=== PATIENT | male | born 1955 | race Caucasian/White ===

== ENCOUNTER → 2023-10-03 06:54 | Outpatient (REF) | payer MEDICARE, OTHER, SELFPAY ==
[2023-10-03 10:51] LABS: ALT (SGPT) 23 U/L (0-50); AST (SGOT) 27 U/L (17-59); Albumin 4.1 g/dl (3.5-5.0); Alkaline Phosphatase 64 U/L (38-126); Blood Urea Nitrogen 26 mg/dl (9-20); Calcium 9.4 mg/dl (8.4-10.2); Carbon Dioxide 27 mmol/L (22-30); Chloride 103 mmol/L (98-107); Glucose 121 mg/dl (70-99); Sodium 140 mmol/L (135-145); Total Bilirubin 0.3 mg/dl (0.2-1.3); eGFR > 60.00
== END ==
LOC: HWLAB 06:54
PROVIDERS: ATTENDING PHYSICIAN Internal Medicine; FAMILY PHYSICIAN Internal Medicine
DX: C34.01 Malignant neoplasm of right main bronchus (principal); C34.90 Malignant neoplasm of unspecified part of unspecified bronchus or lung
CPT/HCPCS: 36415; 80053

== ENCOUNTER → 2024-01-30 06:04 | Outpatient (REF) | payer MEDICARE, OTHER, SELFPAY ==
[2024-01-30 09:47] LABS: % Basophils 0.4 % (0-2); % Eosinophils 1.1 % (0-6); % Immature Granulocytes 0.4 % (0-0.5); % Lymphocytes 19.8 % (20.5-51.1); % Monocytes 10.3 % (1.7-9.3); Absolute Eosinophils 0.1 10^3/uL (0-0.7); Absolute Monocytes 0.5 10^3/uL (0.1-0.6); Absolute Neutrophils 3.6 10^3/uL (1.4-6.5); Hematocrit 37.9 % (39.0-52.0); Hemoglobin 13.1 g/dL (13.0-18.0); Mean Corp Hgb Conc. 34.6 g/dL (33.0-37.0); Mean Corpuscular Hgb 31.1 pg (27.0-31.0); Mean Platelet Volume 10.1 fL (7.4-10.4); Nucleated Red Blood Cells % 0 % (-); Platelet Count 204 10^3/uL (130-400); Red Blood Cell Count 4.21 10^6/uL (4.70-6.10); Red Cell Dist. Width 14.5 % (11.5-14.5); White Blood Cell Count 5.3 10^3/uL (4.8-10.8)
[2024-01-30 10:22] LABS: ALT (SGPT) 27 U/L (0-50); AST (SGOT) 31 U/L (17-59); Albumin 4.5 g/dl (3.5-5.0); Alkaline Phosphatase 71 U/L (38-126); Blood Urea Nitrogen 28 mg/dl (9-20); Calcium 9.5 mg/dl (8.4-10.2); Carbon Dioxide 26 mmol/L (22-30); Chloride 106 mmol/L (98-107); Glucose 98 mg/dl (70-99); HDL Cholesterol 52 mg/dl; LDL Cholesterol, Calculated 64 mg/dl; Potassium 3.9 mmol/L (3.5-5.1); Sodium 140 mmol/L (135-145); Total Bilirubin 0.4 mg/dl (0.2-1.3); Total Cholesterol 141 mg/dl (50-199); Total Protein 6.9 g/dl (6.3-8.2); Triglyceride 125 mg/dl (10-149); Very Low Density Lipoprotein 25 mg/dl (0-30); eGFR > 60.00
[2024-01-30 10:26] LABS: Glycohemoglobin (HgbA1c) 5.8 % (4.0-5.6)
[2024-01-30 10:58] LABS: Free T4 0.81 ng/dl (0.78-2.19); Vitamin D, 25-OH*** 51.3 ng/mL (30-80)
[2024-01-30 11:11] LABS: PSA, Total - Diagnostic 2.25 ng/ml (0.0-4.0); TSH 2.32 uIU/ml (0.47-4.68)
== END ==
LOC: HWLAB 06:04
PROVIDERS: ATTENDING PHYSICIAN Internal Medicine; REFERRING PHYSICIAN Internal Medicine
DX: R35.1 Nocturia (principal); E55.9 Vitamin D deficiency, unspecified; E78.5 Hyperlipidemia, unspecified; E11.69 Type 2 diabetes mellitus with other specified complication; I10 Essential (primary) hypertension
CPT/HCPCS: 36415; 80053; 80061; 82306; 83036; 84153; 84439; 84443; 85025

== ENCOUNTER → 2024-02-14 06:33 | Outpatient (REF) | payer MEDICARE, OTHER, SELFPAY ==
[2024-02-14 10:07] LABS: % Basophils 0.7 % (0-2); % Eosinophils 1.4 % (0-6); % Immature Granulocytes 0.3 % (0-0.5); % Lymphocytes 22.4 % (20.5-51.1); % Monocytes 9.6 % (1.7-9.3); % Neutrophils 65.6 % (42.2-75.2); Absolute Eosinophils 0.1 10^3/uL (0-0.7); Absolute Lymphocytes 1.3 10^3/uL (1.2-3.4); Absolute Monocytes 0.6 10^3/uL (0.1-0.6); Absolute Neutrophils 3.9 10^3/uL (1.4-6.5); Hematocrit 37.7 % (39.0-52.0); Hemoglobin 12.8 g/dL (13.0-18.0); Mean Corpuscular Hgb 30.6 pg (27.0-31.0); Mean Corpuscular Volume 90.2 fL (80.0-94.0); Mean Platelet Volume 10.6 fL (7.4-10.4); Nucleated Red Blood Cells % 0 % (-); Platelet Count 198 10^3/uL (130-400); Red Blood Cell Count 4.18 10^6/uL (4.70-6.10); Red Cell Dist. Width 14.6 % (11.5-14.5); White Blood Cell Count 5.9 10^3/uL (4.8-10.8)
== END ==
LOC: HWLAB 06:33
PROVIDERS: ATTENDING PHYSICIAN Internal Medicine; FAMILY PHYSICIAN Internal Medicine
DX: C34.01 Malignant neoplasm of right main bronchus (principal); C34.90 Malignant neoplasm of unspecified part of unspecified bronchus or lung; C34.91 Malignant neoplasm of unspecified part of right bronchus or lung
CPT/HCPCS: 36415; 85025

== ENCOUNTER 2024-06-14 10:01 | Emergency (ER) | payer MEDICARE, OTHER, SELFPAY ==
[2024-06-14 10:02] VITALS: BMI 28.5
[2024-06-14 10:08] VITALS: BP 165/76
[2024-06-14 11:31] LABS: % Basophils 0.2 % (0-2); % Eosinophils 0.2 % (0-6); % Immature Granulocytes 0.2 % (0-0.5); % Lymphocytes 9.9 % (20.5-51.1); % Monocytes 10.3 % (1.7-9.3); % Neutrophils 79.2 % (42.2-75.2); Absolute Lymphocytes 0.9 10^3/uL (1.2-3.4); Absolute Monocytes 0.9 10^3/uL (0.1-0.6); Absolute Neutrophils 6.8 10^3/uL (1.4-6.5); Hematocrit 37.6 % (39.0-52.0); Mean Corp Hgb Conc. 34.6 g/dL (33.0-37.0); Mean Corpuscular Hgb 30.5 pg (27.0-31.0); Mean Corpuscular Volume 88.3 fL (80.0-94.0); Mean Platelet Volume 9.6 fL (7.4-10.4); Nucleated Red Blood Cells % 0 % (-); Platelet Count 216 10^3/uL (130-400); Red Blood Cell Count 4.26 10^6/uL (4.70-6.10); Red Cell Dist. Width 14.4 % (11.5-14.5); Urine Albumin Negative (Neg - Trace); Urine Bilirubin Negative (Negative); Urine Character Clear (Clear); Urine Color Yellow; Urine Glucose Negative (Negative); Urine Ketone Negative (Negative); Urine Leukocyte Negative (Negative); Urine Nitrite Negative (Negative); Urine Occult Blood 2+ (Negative); Urine Specific Gravity 1.025 (<1.030); Urine Urobilinogen Negative (Neg - 1+); White Blood Cell Count 8.6 10^3/uL (4.8-10.8)
[2024-06-14 11:47] LABS: Urine Mucus Few
[2024-06-14 11:48] LABS: Urine Calcium Oxalate Crystals Seen; Urine Hyaline Cast 0-2 /LPF (0-2)
[2024-06-14 11:49] LABS: ALT (SGPT) 26 U/L (0-50); AST (SGOT) 27 U/L (17-59); Albumin 4.5 g/dl (3.5-5.0); Alkaline Phosphatase 68 U/L (38-126); Blood Urea Nitrogen 34 mg/dl (9-20); Calcium 9.5 mg/dl (8.4-10.2); Carbon Dioxide 24 mmol/L (22-30); Chloride 105 mmol/L (98-107); Estimated Creatinine Clearance 49 ml/min; Glucose 93 mg/dl (70-99); Lipase 215 U/L (23-300); Potassium 4.4 mmol/L (3.5-5.1); Sodium 141 mmol/L (135-145); Total Bilirubin 0.4 mg/dl (0.2-1.3); Total Protein 7.1 g/dl (6.3-8.2); Urine Bacteria Few (Negative); eGFR 50.71
--- NOTE | 2024-06-14 12:57 | ED.GENMED ---
History of Present Illness
General
Chief Complaint: Abdominal Symptoms
Time Seen by Provider: 06/14/24 10:47
History of Present Illness
History of Present Illness:
68-year-old male presents to the emergency department for evaluation of right lower quadrant abdominal pain associated with nausea and vomiting for the past 2 days. States that he just completed a course of doxycycline and amoxicillin due to an
incidentally noted pneumonia on an outpatient CT scan for his lung cancer done at [facility]. Did have some diarrhea earlier this week but after discontinuing the Augmentin the diarrhea resolved. Reports tactile fevers but no chills or sweats. No
hematuria or dysuria
Review of Systems
Review of Systems
Allergies reviewed?: Yes
All Other Systems: ROS reviewed and negative except as documented in HPI and ROS
Phy Exam
Physical Exam
Physical Exam:
GEN: Well appearing, NAD, WDWN
HEENT: Oral mucosa moist, no scleral icterus
Cardiac: Regular rate
Lung: No respiratory distress, no tachypnea
Abdomen: Soft, nontender
MSK: No gross deformity or injuries
Skin: Good color, no pallor or jaundice, no rashes
Neuro: AO x3, moves all extremities freely
Psych: Calm, cooperative
Course
Orders/Labs/Results
Orders:
Orders
06/14/24 10:12
IV Insert/Care/Rem.- Treatment PRN
06/14/24 11:10
Complete Blood Count/With Diff Urgent
Comprehensive Metabolic Panel Urgent
Lipase Urgent
Urinalysis Reflex To Culture Urgent
Date Specimen was Collected: 06/14/24
Time Specimen was Collected: 10:12
Urine Microscopic Reflex Cult Urgent
06/14/24 11:34
CT Abd/Pel (IV only)-DH only Urgent
Comment:
Reason For Exam: RLQ pain
06/14/24 12:57
Ketorolac [Toradol] 15 mg IV NOW STA
Abnormal Lab Results
06/14/24
11:10
RBC 4.26 L 10^6/uL
(4.70-6.10)
Hct 37.6 L %
(39.0-52.0)
Absolute Neuts (auto) 6.8 H 10^3/uL
(1.4-6.5)
Absolute Lymphs (auto) 0.9 L 10^3/uL
(1.2-3.4)
Absolute Monos (auto) 0.9 H 10^3/uL
(0.1-0.6)
Neutrophils % 79.2 H %
(42.2-75.2)
Lymphocytes % 9.9 L %
(20.5-51.1)
Monocytes % 10.3 H %
(1.7-9.3)
BUN 34 H mg/dl
(9-20)
Creatinine 1.5 H mg/dL
(0.7-1.3)
Ur Occult Blood Reflex 2+ A
(Negative)
Urine RBC 3-6 A /HPF
(0-2)
Urine Bacteria (Reflex) Few A
(Negative)
06/14/24 11:10
06/14/24 11:10
Vital Signs
Initial and Last Documented VS:
Initial Vital Signs
Temp Pulse Resp BP Pulse Ox
98 F 72 16 165/76 100
06/14/24 10:08 06/14/24 10:08 06/14/24 10:08 06/14/24 10:08 06/14/24 10:08
Last Documented Vital Signs
Temp Pulse Resp BP Pulse Ox
98 F 87 16 124/75 98
06/14/24 10:08 06/14/24 13:15 06/14/24 13:15 06/14/24 13:15 06/14/24 13:15
MDM/Problems Addressed
MDM/Problems Addressed:
Imaging reveals a 1 mm right UVJ stone with mild hydronephrosis, this is likely the etiology to symptoms., His pain is well-controlled, urinalysis unremarkable for infectious etiology. Will discharge home with expectant management
*Critical Care Note
Total Time (30-74mins, 75-104mins- exclusive of procedures): Not Applicable
ED Attending Note
-
Portions of this chart may have been created with voice recognition software.� Occasional wrong word or��sound alike� substitutions may have occurred due to the inherent limitations of voice recognition software.
Discharge Plan
Departure
Patient Disposition: Home (Routine Discharge)
Date of Disposition: 06/14/24
Time of Disposition: 12:57
Patient with high blood pressure during this ER visit?: No
Discharge Problem:
Ureterolithiasis
Instructions: Kidney Stone, Adult ED
Prescriptions:
New
diclofenac sodium 75 mg tablet,delayed release (DR/EC)
75 mg PO BID PRN (Reason: Pain) Qty: 20 0RF
No Action
multivitamin 1 EACH tablet
1 ea PO DAILY
losartan 50 MG tablet
50 mg PO DAILY
aspirin [Aspir-Low] 81 MG tablet,delayed release (DR/EC)
81 mg PO DAILY
omeprazole 20 MG capsule,delayed release(DR/EC)
20 mg PO DAILY
rosuvastatin 10 MG tablet
10 mg PO QPM
Referrals:
Jonel Bean MD [Family Provider] -
Interventions
Interventions:
*Risk Screen - Suicide Last Done: 06/14/24 10:08
*General Assessment Last Done: 06/14/24 11:17
*Neglect/Abuse Screening Last Done: 06/14/24 10:11
ED- Fall Risk Assessment Last Done: 06/14/24 11:17
*ED COVID-19 Vaccine History Last Done: 06/14/24 11:17
*Nursing Disposition Last Done: 06/14/24 13:30
DO-Aofhpo-Ueizsuvmov Assessment Last Done: 06/14/24 11:17
Discharge Date and Time
Discharge Date/Time: 06/14/24 13:35
Print Language: DIVEHI
[2024-06-14 13:15] VITALS: BP 124/75
[2024-06-14] MEDS: TORADOL 15 MG IV (13:20)
== END 2024-06-14 13:35 | disposition home or self-care (01) ==
LOC: EMR 10:01
PROVIDERS: Emergency Medicine; EMERGENCY PHYSICIAN Student in an Organized Health Care Education/Training Program; FAMILY PHYSICIAN Internal Medicine
DX: N13.2 Hydronephrosis with renal and ureteral calculous obstruction (principal)
CPT/HCPCS: 96374; 99284; 74177; 80053; 81003; 81015; 83690; 85025; Q9967

== ENCOUNTER → 2024-08-11 06:48 | Outpatient (REF) | payer MEDICARE, OTHER, SELFPAY ==
[2024-08-11 10:37] LABS: HDL Cholesterol 53 mg/dl; LDL Cholesterol, Calculated 65 mg/dl; Total Cholesterol 143 mg/dl (50-199); Triglyceride 128 mg/dl (10-149); Very Low Density Lipoprotein 25 mg/dl (0-30)
[2024-08-11 10:58] LABS: Vitamin D, 25-OH*** 39.5 ng/mL (30-80)
[2024-08-11 11:59] LABS: Glycohemoglobin (HgbA1c) 5.7 % (4.0-5.6)
== END ==
LOC: HWLAB 06:48
PROVIDERS: ATTENDING PHYSICIAN Internal Medicine; REFERRING PHYSICIAN Internal Medicine
DX: E55.9 Vitamin D deficiency, unspecified (principal); E78.5 Hyperlipidemia, unspecified; E11.69 Type 2 diabetes mellitus with other specified complication
CPT/HCPCS: 36415; 80061; 82306; 83036

== ENCOUNTER → 2025-02-12 06:36 | Outpatient (REF) | payer MEDICARE, OTHER, SELFPAY ==
[2025-02-12 09:12] LABS: HDL Cholesterol 54 mg/dl; LDL Cholesterol, Calculated 70 mg/dl; Very Low Density Lipoprotein 31 mg/dl (0-30)
[2025-02-12 09:36] LABS: Glycohemoglobin (HgbA1c) 5.8 % (4.0-5.6)
[2025-02-12 09:38] LABS: PSA, Total - Diagnostic 3.33 ng/ml (0.0-4.0)
== END ==
LOC: HWLAB 06:36
PROVIDERS: ATTENDING PHYSICIAN Internal Medicine; REFERRING PHYSICIAN Internal Medicine
DX: E11.69 Type 2 diabetes mellitus with other specified complication (principal); R35.1 Nocturia; E78.5 Hyperlipidemia, unspecified
CPT/HCPCS: 36415; 80061; 83036; 84153; 84443